=== PATIENT | female | born 2000 | race Caucasian/White ===

== ENCOUNTER 2018-03-12 13:30 | Emergency (ER) | payer OTHER ==
[2018-03-12 13:53] VITALS: BP 109/66
--- NOTE | 2018-03-12 14:37 | UC ---
Bite Injury/Animal HPI - HPI Summary HPI Summary: today found bat in common area of her apt. no bites or open wounds. status of bat unknown re: rabies. she spoke to health dept. who did not find her high risk for tx. - History of Current Complaint Chief Complaint: UCBiteInjury Stated Complaint: POTENTIAL BAT EXPOSURE Time Seen by Provider: 03/12/18 14:23 Hx Obtained From: Patient Hx Last Menstrual Period: 03/05/18 Pain Intensity: 0 Onset/Duration: Sudden Onset Type of Bite: Animal - bat exposure, no bite Aggravating Factor(s): Nothing Alleviating Factor(s): Nothing Associated Signs And Symptoms: Positive: Negative Animal Available for Observation: No - Allergies/Home Medications Allergies/Adverse Reactions: Allergies Allergy/AdvReac Type Severity Reaction Status Date / Time No Known Allergies Allergy Verified 03/12/18 13:53 Home Medications: Home Medications NK [No Home Medications Reported] 03/12/18 [History Confirmed 03/12/18] PMH/Surg Hx/FS Hx/Imm Hx Previously Healthy: Yes - Surgical History Surgical History: Yes Surgery Procedure, Year, and Place: 05/2015 - OSTEOSARCOMA ( LOW GRADE)- Lt SHOULDER BLADE. TONSILECTOMY. APPENDECTOMY -2011 - Social History Alcohol Use: Occasionally Substance Use Type: None Smoking Status (MU): Never Smoked Tobacco Review of Systems All Other Systems Reviewed And Are Negative: Yes Constitutional: Positive: Negative Skin: Positive: Negative Respiratory: Positive: Negative Cardiovascular: Positive: Negative Gastrointestinal: Positive: Negative Neurological: Positive: Negative Physical Exam Triage Information Reviewed: Yes Appearance: Well-Appearing, No Pain Distress Vital Signs: Initial Vital Signs Temp 98.6 F 03/12/18 13:44 Pulse 91 03/12/18 13:44 Resp 18 03/12/18 13:44 BP 109/66 03/12/18 13:44 Pulse Ox 100 03/12/18 13:44 Vital Signs Reviewed: Yes Respiratory Exam: Normal Cardiovascular Exam: Normal Neurological: Positive: Alert Psychological Exam: Normal Bite Injury Course/Dx - Course Course Of Treatment: bat exposure w/ unknown rabies status. no bites/wounds. pt has decided to go through w/ vaccine and tx. denies symptoms. - Differential Dx/Diagnosis Differential Diagnosis/HQI/PQRI: Envenomation, Rabies Exposure, Other Provider Diagnoses: bat exposure Discharge - Sign-Out/Discharge Documenting (check all that apply): Patient Departure All imaging exams completed and their final reports reviewed: No Studies - Discharge Plan Condition: Good Disposition: HOME Patient Education Materials: Rabies Vaccine (By injection), Rabies Immune Globulin (By injection), Rabies (ED) Referrals: Servando Mosquera MD [Primary Care Provider] - Additional Instructions: follow up with pcp aobut the rest of the immunizations. call us if you have anymore questions. use the CDC as well. - Billing Disposition and Condition Condition: GOOD Disposition: Home
[2018-03-12] MEDS ORDERED: Rabies Immune Globulin 2 ML* 150 UNITS/ML VIAL (KEDRAB) IM ONE (15:22)
[2018-03-12] MEDS ORDERED: Rabies VIRUS VACCINE (Imovax)* 2.5 UNIT/ML 1 ML IM ONE ×2 (15:27→15:28)
[2018-03-12] MEDS ORDERED: Rabies Immune Globulin 2 ML* 150 UNITS/ML VIAL ONE (15:28)
== END 2018-03-12 16:15 | disposition home or self-care (01) ==
LOC: UCEAST 13:30
DX: Z20.3 Contact with and (suspected) exposure to rabies (principal)
CPT/HCPCS: 90375; 90471; 96372; 99211; G0463

== ENCOUNTER 2018-03-15 07:18 | Emergency (ER) | payer OTHER ==
[2018-03-15 07:34] VITALS: BP 124/83
[2018-03-15] MEDS ORDERED: Rabies VIRUS VACCINE (Imovax)* 2.5 UNIT/ML 1 ML IM ONE (07:46)
--- NOTE | 2018-03-15 07:47 | UC ---
Bite Injury/Animal HPI - HPI Summary HPI Summary: [place] for second dose of Imovax. Bat feces found in the corridor of their dormitory, the bedroom doors were closed. C/o sore throat for 5 days, was seen in another and was found to have viral pharyngitis. c/o worsening sore throat and recent malaise, not sure if due to vaccination or new onset URI . LMD 03-05-18 - History of Current Complaint Chief Complaint: UCBiteInjury Stated Complaint: POST EXPOSURE RABIES Time Seen by Provider: 03/15/18 07:41 Hx Obtained From: Patient Hx Last Menstrual Period: 03/05/18 ?: No Severity Currently: Moderate Severity Initially: Moderate Pain Intensity: 0 Onset/Duration: Sudden Onset Type of Bite: Animal Has Animal Been Immunized?: Unknown Aggravating Factor(s): Nothing Alleviating Factor(s): Nothing Associated Signs And Symptoms: Positive: Negative Animal Available for Observation: No Animal Control Notified: Yes - Risk Factors Infection/Sepsis Risk Factors: Negative - Allergies/Home Medications Allergies/Adverse Reactions: Allergies Allergy/AdvReac Type Severity Reaction Status Date / Time No Known Allergies Allergy Verified 03/15/18 07:29 Home Medications: Home Medications Ibuprofen TAB* [Motrin TAB* 400 MG] 400 mg PO Q6H PRN 03/15/18 [History Confirmed 03/15/18] PMH/Surg Hx/FS Hx/Imm Hx Previously Healthy: Yes - Surgical History Surgical History: Yes Surgery Procedure, Year, and Place: 05/2015 - OSTEOSARCOMA ( LOW GRADE)- Lt SHOULDER BLADE. TONSILECTOMY. APPENDECTOMY -2011 - Family History Known Family History: Positive: None - Social History Alcohol Use: Occasionally Substance Use Type: None Smoking Status (MU): Never Smoked Tobacco Review of Systems All Other Systems Reviewed And Are Negative: Yes ENT: Positive: Sore Throat, Nasal Discharge Respiratory: Positive: Negative Cardiovascular: Positive: Negative Physical Exam Triage Information Reviewed: Yes Appearance: Well-Appearing, No Pain Distress, Well-Nourished Vital Signs: Initial Vital Signs Temp 99.2 F 03/15/18 07:31 Pulse 100 03/15/18 07:31 Resp 16 03/15/18 07:31 BP 124/83 03/15/18 07:31 Pulse Ox 97 03/15/18 07:31 Vital Signs Reviewed: Yes Eyes: Positive: Conjunctiva Clear ENT: Positive: Hearing grossly normal, Pharynx normal, Pharyngeal erythema, Nasal congestion, TMs normal, Other - exudates on pharynx Neck: Positive: Supple, Nontender, No Lymphadenopathy Respiratory: Positive: Chest non-tender, Lungs clear, Normal breath sounds Cardiovascular: Positive: RRR, No Murmur, Pulses Normal, Brisk Capillary Refill Abdomen Description: Positive: Nontender Bowel Sounds: Positive: Present Musculoskeletal: Positive: Strength Intact, ROM Intact Neurological: Positive: Alert, Muscle Tone Normal Skin: Positive: Rashes Bite Injury Course/Dx - Course Course Of Treatment: rapid strep was negative, patient received second dose of imovax today. Viral pharyngitis, continue supportive measures and f/u School health. Return in 4 days for dose 3 - Differential Dx/Diagnosis Provider Diagnoses: Pharyngitis. Rabies prophylaxis Discharge - Sign-Out/Discharge Documenting (check all that apply): Patient Departure All imaging exams completed and their final reports reviewed: No Studies - Discharge Plan Condition: Stable Disposition: HOME Patient Education Materials: Rabies Vaccine (By injection), Pharyngitis (ED) Referrals: Servando Mosquera MD [Primary Care Provider] - - Billing Disposition and Condition Condition: STABLE Disposition: Home
== END 2018-03-15 08:35 | disposition home or self-care (01) ==
LOC: UCEAST 07:18
DX: Z20.3 Contact with and (suspected) exposure to rabies (principal); J02.9 Acute pharyngitis, unspecified
CPT/HCPCS: 87651; 90471; 96372; 99211; G0463